=== PATIENT | female | born 1950 | race Caucasian/White ===

== ENCOUNTER 2021-09-07 07:11 | Emergency (ER) | payer MEDICARE, BC ==
[2021-09-07] MEDS ORDERED: Cyclobenzaprine 10 MG Tab PO ONE (07:54)
[2021-09-07] MEDS ORDERED: Sodium Chloride 0.9% 10 ML Syringe FLUSH PRN (08:50)
[2021-09-07] MEDS ORDERED: Sodium Chloride 0.9% 100 ML IV SCH (09:00)
[2021-09-07] MEDS ORDERED: Iopamidol 755 Mg/ML 100 ML Bottle IVPUSH ONE (09:00)
[2021-09-07] MEDS ORDERED: Sodium Chloride 0.9% 10 ML Syringe FLUSH ONE (09:00)
[2021-09-07] MEDS ORDERED: Iopamidol 755 MG/ML 50 ML Bottle IVPUSH ONE (09:00)
[2021-09-07] MEDS ORDERED: Labetalol 100 MG/20 ML MDV IVPUSH ONE ×2 (09:06→09:42)
[2021-09-07] MEDS ORDERED: HYDROmorphone 0.5 MG/0.5 ML Syringe IVPUSH ONE (09:06)
[2021-09-07] MEDS ORDERED: niCARdipine HCl 25 MG in Sodium Chloride 0.9% 250 ML IV SCH (10:00)
== END 2021-09-07 10:15 ==
LOC: JD.ED 07:11
DX: I60.9 Nontraumatic subarachnoid hemorrhage, unspecified (principal); I67.1 Cerebral aneurysm, nonruptured; E78.00 Pure hypercholesterolemia, unspecified; E03.9 Hypothyroidism, unspecified
CPT/HCPCS: 36415; 70450; 70496; 70498; 72125; 80053; 85025; 85610; 85730; 96374; 96375; 99285; A9270; J1170; J3490; J7050; Q9967; U0002

== ENCOUNTER 2021-10-28 09:28 | Emergency (ER) | payer MEDICARE, BC | END 2021-10-28 12:05 | disposition home or self-care (01) | LOC: JD.ED 09:28 | DX: S52.502A Unspecified fracture of the lower end of left radius, initial encounter for closed fracture (principal); S52.602A Unspecified fracture of lower end of left ulna, initial encounter for closed fracture; E78.00 Pure hypercholesterolemia, unspecified; I10 Essential (primary) hypertension; E03.9 Hypothyroidism, unspecified; Z79.899 Other long term (current) drug therapy; W01.0XXA Fall on same level from slipping, tripping and stumbling without subsequent striking against object, initial encounter | CPT/HCPCS: 29125; 73110-26-LT; 73110-LT; 99283-25; 99284 ==